=== PATIENT | male | born 1935 | race Caucasian/White ===

== ENCOUNTER → 2019-02-26 | Outpatient (CLI) | payer MEDICARE | END | disposition home or self-care (01) | LOC: WOUND 10:56 | PROVIDERS: ATTEND Internal Medicine Cardiovascular Disease | DX: Z93.3 Colostomy status (principal); I10 Essential (primary) hypertension; Z85.46 Personal history of malignant neoplasm of prostate | CPT/HCPCS: G0463 ==

== ENCOUNTER → 2019-03-08 | Outpatient (CLI) | payer MEDICARE | END | disposition home or self-care (01) | LOC: WOUND 14:30 | PROVIDERS: ATTEND Internal Medicine Cardiovascular Disease | DX: Z93.3 Colostomy status (principal); I10 Essential (primary) hypertension; Z85.46 Personal history of malignant neoplasm of prostate | CPT/HCPCS: G0463 ==

== ENCOUNTER → 2019-03-13 | Outpatient (CLI) | payer MEDICARE ==
[~2019-03-13] MED LIST: OMNIPAQUE 350 MG/ML, 150 ML BOTTLE ONE
== END | disposition home or self-care (01) ==
LOC: RAD 08:51
PROVIDERS: ATTEND Surgery
DX: K57.30 Diverticulosis of large intestine without perforation or abscess without bleeding (principal)
CPT/HCPCS: 74270; Q9967

== ENCOUNTER → 2019-03-13 | Outpatient (CLI) | payer MEDICARE | END | disposition home or self-care (01) | LOC: WOUND 10:26 | PROVIDERS: ATTEND Internal Medicine | DX: Z93.3 Colostomy status (principal); I10 Essential (primary) hypertension; Z85.46 Personal history of malignant neoplasm of prostate | CPT/HCPCS: G0463 ==

== ENCOUNTER 2019-03-26 08:08 | Outpatient (CLI) | payer MEDICARE | END 2019-03-26 23:59 | disposition home or self-care (01) | LOC: STAR 08:08 | PROVIDERS: ATTEND Surgery | DX: Z01.810 Encounter for preprocedural cardiovascular examination (principal); Z93.3 Colostomy status | CPT/HCPCS: 93005 ==

== ENCOUNTER 2019-04-03 10:19 | Inpatient (IN) | payer MEDICARE ==
[~2019-04-03] VITALS: Ht 175.3 cm; Wt 80.7 kg
[2019-04-25 06:33] VITALS: BP 149/95
== END 2019-04-25 10:54 | disposition home or self-care (01) | DRG 329 ==
LOC: ORIP 10:19 → 4NOR 16:42
PROVIDERS: ADMIT Surgery; ATTEND Surgery
PROC: 0DJD0ZZ Inspection of Lower Intestinal Tract, Open Approach (ICD-10-PCS; principal; 2019-04-03)
PROC: 0DBL0ZZ Excision of Transverse Colon, Open Approach (ICD-10-PCS; 2019-04-03)
PROC: 0DB80ZZ Excision of Small Intestine, Open Approach (ICD-10-PCS; 2019-04-03)
PROC: 0DN80ZZ Release Small Intestine, Open Approach (ICD-10-PCS; 2019-04-03)
PROC: 0D9670Z Drainage of Stomach with Drainage Device, Via Natural or Artificial Opening (ICD-10-PCS; 2019-04-07)
PROC: 02HV33Z Insertion of Infusion Device into Superior Vena Cava, Percutaneous Approach (ICD-10-PCS; 2019-04-16)
PROC: 3E1M38Z Irrigation of Peritoneal Cavity using Irrigating Substance, Percutaneous Approach (ICD-10-PCS; 2019-04-16)
PROC: 30233N1 Transfusion of Nonautologous Red Blood Cells into Peripheral Vein, Percutaneous Approach (ICD-10-PCS; 2019-04-21)
DX: K57.20 Diverticulitis of large intestine with perforation and abscess without bleeding (principal); E43 Unspecified severe protein-calorie malnutrition; K56.7 Ileus, unspecified; R32 Unspecified urinary incontinence; K66.0 Peritoneal adhesions (postprocedural) (postinfection); Z68.26 Body mass index [BMI] 26.0-26.9, adult; I10 Essential (primary) hypertension; Z85.46 Personal history of malignant neoplasm of prostate
CPT/HCPCS: 36415; 71045; 74018; 74177; 80048; 80053; 82565; 82962; 83735; 84100; 84134; 84145; 84478; 85025; 86140; 86850; 86900; 86923; 87070; 87075; 87077; 87186; 87205; 87324; 88307; G0378; J0131; J0610; J0690; J1170; J1650; J1750; J1815; J1885; J2020; J2175; J2185; J2250; J2270; J2405; J2543; J2704; J2710; J3010; J3475; J3480; J7120; Q9967; C1765; J0330; J1200; J2370; J2765; J3420; J3490; J7030; J7040; J7050; J7121; P9016

== ENCOUNTER 2019-09-09 14:27 | Outpatient (CLI) | payer MEDICARE ==
[~2019-09-09 14:27] MED LIST changes: +CIPR500T87 PO; +FLUC200T PO; +HYDR-3240 PO; +HYDR25TA6 PO; +LINE600T12 PO; +LOSA100T14 PO; -OMNIPAQUE 350 MG/ML, 150 ML BOTTLE ONE; +TAMS-11 PO
== END 2019-09-09 23:59 | disposition home or self-care (01) ==
LOC: RAD 14:27
PROVIDERS: ATTEND Surgery
DX: Z09 Encounter for follow-up examination after completed treatment for conditions other than malignant neoplasm (principal); L76.34 Postprocedural seroma of skin and subcutaneous tissue following other procedure; L02.211 Cutaneous abscess of abdominal wall; I10 Essential (primary) hypertension; Z93.3 Colostomy status; Z98.890 Other specified postprocedural states; Z88.1 Allergy status to other antibiotic agents
CPT/HCPCS: 76700

== ENCOUNTER 2019-09-16 06:59 | Outpatient (CLI) | payer MEDICARE | END 2019-09-16 23:59 | disposition home or self-care (01) | LOC: CFH 06:59 | PROVIDERS: ATTEND Surgery | DX: L76.34 Postprocedural seroma of skin and subcutaneous tissue following other procedure (principal); Z09 Encounter for follow-up examination after completed treatment for conditions other than malignant neoplasm; I10 Essential (primary) hypertension; M41.55 Other secondary scoliosis, thoracolumbar region; M47.815 Spondylosis without myelopathy or radiculopathy, thoracolumbar region; Z98.890 Other specified postprocedural states; Z88.8 Allergy status to other drugs, medicaments and biological substances | CPT/HCPCS: 74176 ==